=== PATIENT | male | born 1955 | race Caucasian/White ===

== ENCOUNTER 2018-10-17 14:48 | Outpatient (CLI) | payer OTHER ==
--- NOTE | 2018-10-17 15:06 | RAD ---
Left knee 2 views HISTORY: Knee pain. Disability evaluation. FINDINGS: Joint spaces are preserved. Minimal osteophytosis. Minimal calcification of the lateral men iscus. No acute fracture, dislocation, or fluid distention of the suprapatellar bursa. IMPRESSION: Minimal osteoarthritic changes left knee. No acute osseous abnormalities are demonstrated .
== END 2018-10-17 14:49 | disposition home or self-care (01) ==
LOC: BICRAD 14:48
PROVIDERS: ATTEND Internal Medicine
DX: Z02.71 Encounter for disability determination (principal); M17.12 Unilateral primary osteoarthritis, left knee

== ENCOUNTER 2022-05-25 14:42 | Inpatient (IN) | payer OTHER, MEDICAID ==
[2022-05-25 15:53] LABS: #Eosinphils 0.1 thou/uL (0.0-0.7); #Neutrophils 6.1 thou/uL (1.40-6.50); %Basophils 0.5 % (0.0-1.0); %Eosinophils 1.5 % (0.0-10.0); %Lymphocytes 21.7 % (21.0-51.0); %Monocytes 10.4 % (0.0-10.0); Hemoglobin 15.4 g/dL (14.0-18.0); Mean Corpuscular HGB CONC 33.2 g/dL (32.0-36.0); Mean Corpuscular Volume 93.2 fl (78.0-98.0); Mean Platelet Volume 10.1 fL (7.4-10.4); Platelet Count 178 10x3/uL (130-400); RBC Distribution Width 12.7 % (11.5-14.5); Red Blood Cell (RBC) Count 4.96 mill/uL (4.70-6.10); White Blood Cell (WBC) Count 9.3 10x3/uL (4.8-10.8)
[2022-05-25 16:15] LABS: Acetaminophen Less than 10.0 mcg/mL (10.0-30.0); Alcohol Less than 10 mg/dL (Less than 10); Salicylate Less than 8.0 mg/dL (15.0-30.0)
[2022-05-25 16:16] LABS: ALT (SGPT) 28 U/L (8-55); AST (SGOT) 29 U/L (5-34); Albumin 4.1 g/dL (3.4-4.8); Alkaline Phosphatase 85 U/L (40-110); Anion Gap 12 mmol/L (10-20); BUN (Urea Nitrogen) 17 mg/dL (8.4-25.7); Bilirubin, Total 0.8 mg/dL (0.2-1.2); Calc. Creatinine Clearance 0 mL/min (70-130); Calcium 9.6 mg/dL (7.8-10.44); Carbon Dioxide 32 mmol/L (23-31); Chloride 104 mmol/L (98-107); Estimated GFR 91; Globulin 3.3 g/dL (2.4-3.5); Glucose 190 mg/dL (80-115); Potassium 3.8 mmol/L (3.5-5.1); Protein, Total 7.4 g/dL (5.8-8.1); Sodium 144 mmol/L (136-145)
[2022-05-25 16:35] LABS: CKMB 3.6 ng/mL (0-6.6)
[2022-05-25] MEDS ORDERED: Aspirin Chewable 81 MG TAB ONE (16:55)
[2022-05-25 17:30] LABS: SARS-CoV-2 NAA Rapid Test Not Detected (NotDetected)
[2022-05-25 19:47] LABS: Troponin I 0.039 ng/mL (< 0.028)
[2022-05-25] MEDS ORDERED: Ondansetron ODT 4 MG TAB PO PRN (20:13)
[2022-05-25] MEDS ORDERED: Ondansetron PF 4 MG/2 ML Vial IVP PRN (20:13)
[2022-05-25] MEDS ORDERED: Acetaminophen 325 MG TAB PO PRN (20:13)
[2022-05-25] MEDS ORDERED: Dextrose 5% in Water 1,000 ML IV PRN (20:23)
[2022-05-25] MEDS ORDERED: Dextrose 50% Abboject 50 ML SYRINGE SLOW IVP PRN (20:23)
[2022-05-25] MEDS ORDERED: HumaLOG 300 UNITS/3 ML VIAL SC PRN ×2 (20:23)
[2022-05-25 22:30] LABS: Troponin I 0.049 ng/mL (< 0.028)
[2022-05-26 00:30] LABS: Hemoglobin A1c 6.4 % (4.0-6.0)
[2022-05-26 04:22] VITALS: BMI 39.0
[2022-05-26 04:28] LABS: Bilirubin Negative (Negative); Blood, Urine Negative (Negative); Clarity Turbid (Clear); Glucose, Urine (Dipstick) 30 mg/dL (Negative); Ketone, Urine Negative (Negative); Leukocyte Negative Leu/uL (Negative); Nitrite Negative (Negative); Protein, Urine (Dipstick) 50 mg/dL (Neg-Trace); Specific Gravity, Urine 1.031 (1.002-1.036); Squamous Epithelial 0-3 HPF (0-3); WBC/HPF 0-3 HPF (0-3)
[2022-05-26 04:29] LABS: Bacteria/HPF 1+ HPF (None Seen)
[2022-05-26 05:07] LABS: Amphetamine Not Detected (NotDetected); Barbiturates Screen Not Detected (NotDetected); Benzodiazepine Screen Not Detected (NotDetected); Cocaine Metabolite Screen Not Detected (NotDetected); Methadone Not Detected (NotDetected); Methamphetamine Not Detected (NotDetected); Opiate Screen Not Detected (NotDetected); Oxycodone Screen Not Detected (NotDetected); Phencyclidine (PCP) Not Detected (NotDetected); THC/Cannabinoid Screen Not Detected (NotDetected); Tricyclic Screen Not Detected (NotDetected)
[2022-05-26 05:18] LABS: #Basophils 0.1 thou/uL (0.0-0.2); #Eosinphils 0.2 thou/uL (0.0-0.7); #Lymphocytes 2.4 thou/uL (1.20-3.40); #Monocytes 0.9 thou/uL (0.11-0.59); #Neutrophils 5.2 thou/uL (1.40-6.50); %Basophils 0.7 % (0.0-1.0); %Eosinophils 2.6 % (0.0-10.0); %Lymphocytes 27.8 % (21.0-51.0); %Neutrophils 58.9 % (42.0-75.0); Mean Corpuscular HGB CONC 32.9 g/dL (32.0-36.0); Mean Corpuscular Hemoglobin 30.8 pg (27.0-31.0); Mean Corpuscular Volume 93.5 fl (78.0-98.0); Mean Platelet Volume 10.3 fL (7.4-10.4); Platelet Count 155 10x3/uL (130-400); RBC Distribution Width 12.8 % (11.5-14.5); Red Blood Cell (RBC) Count 4.54 mill/uL (4.70-6.10); White Blood Cell (WBC) Count 8.8 10x3/uL (4.8-10.8)
[2022-05-26 05:34] LABS: Anion Gap 14 mmol/L (10-20); BUN (Urea Nitrogen) 17 mg/dL (8.4-25.7); CK (CPK) 345 U/L (30-200); Calc. Creatinine Clearance 155 mL/min (70-130); Carbon Dioxide 27 mmol/L (23-31); Cardiac Risk 4.9 (Less than 4.5); Chloride 104 mmol/L (98-107); Cholesterol 192 mg/dl (< 200 Desired); Estimated GFR 98; Glucose 162 mg/dL (80-115); HDL Cholesterol 39 mg/dL (>60 Neg Risk); LDL Cholesterol, Calculated 128 mg/dL; Potassium 3.3 mmol/L (3.5-5.1); Sodium 142 mmol/L (136-145); Triglycerides 127 mg/dL (Less than 150)
[2022-05-26] MEDS: Aspirin Chewable 81 MG TAB PO SCH (12:25)
[2022-05-26] MEDS: Enoxaparin Sodium 40 MG/0.4 ML SYRINGE SC SCH (12:25)
[2022-05-26] MEDS ORDERED: Potassium Chloride 20 MEQ TAB PO SCH (19:45)
[2022-05-26] MEDS: Nystatin Powder 15 GM BOT TOP SCH (21:36)
[2022-05-26] MEDS: Atorvastatin Calcium 40 MG TAB PO SCH (21:36)
[2022-05-26] MEDS: TICAGRELOR 90 MG TABLET PO SCH (21:36)
[2022-05-27 05:34] LABS: Anion Gap 15 mmol/L (10-20); BUN (Urea Nitrogen) 16 mg/dL (8.4-25.7); Calc. Creatinine Clearance 158 mL/min (70-130); Calcium 8.7 mg/dL (7.8-10.44); Carbon Dioxide 25 mmol/L (23-31); Chloride 98 mmol/L (98-107); Estimated GFR 99; Glucose 101 mg/dL (80-115); Potassium 3.5 mmol/L (3.5-5.1); Sodium 134 mmol/L (136-145)
[2022-05-27] MEDS: Nystatin Powder 15 GM BOT TOP SCH ×2 (08:32→21:44)
[2022-05-27] MEDS: Aspirin Chewable 81 MG TAB PO SCH (08:32)
[2022-05-27] MEDS: Lisinopril 10 MG TAB PO SCH (08:32)
[2022-05-27] MEDS: Enoxaparin Sodium 40 MG/0.4 ML SYRINGE SC SCH (08:32)
[2022-05-27] MEDS: TICAGRELOR 90 MG TABLET PO SCH ×2 (08:32→21:43)
[2022-05-27] MEDS: Atorvastatin Calcium 40 MG TAB PO SCH (21:43)
[2022-05-28] MEDS: metFORMIN 500 MG TAB PO SCH ×2 (08:49→16:04)
[2022-05-28] MEDS: TICAGRELOR 90 MG TABLET PO SCH ×2 (08:49→21:21)
[2022-05-28] MEDS: Enoxaparin Sodium 40 MG/0.4 ML SYRINGE SC SCH (08:49)
[2022-05-28] MEDS: Aspirin Chewable 81 MG TAB PO SCH (08:49)
[2022-05-28] MEDS: Lisinopril 10 MG TAB PO SCH (08:50)
[2022-05-28] MEDS: Nystatin Powder 15 GM BOT TOP SCH ×2 (08:50→21:21)
[2022-05-28] MEDS: Rosuvastatin 20 MG TAB PO SCH (08:50)
[2022-05-28] MEDS ORDERED: Potassium Chloride 20 MEQ TAB PO ONE (17:00)
[2022-05-28] MEDS: Atorvastatin Calcium 40 MG TAB PO SCH (21:21)
[2022-05-29] MEDS: Aspirin Chewable 81 MG TAB PO SCH (08:05)
[2022-05-29] MEDS: metFORMIN 500 MG TAB PO SCH ×2 (08:05→17:26)
[2022-05-29] MEDS: Nystatin Powder 15 GM BOT TOP SCH ×2 (08:06→22:52)
[2022-05-29] MEDS: Lisinopril 10 MG TAB PO SCH (08:06)
[2022-05-29] MEDS: TICAGRELOR 90 MG TABLET PO SCH ×2 (08:07→20:10)
[2022-05-29] MEDS: Rosuvastatin 20 MG TAB PO SCH (08:07)
[2022-05-29] MEDS: Atorvastatin Calcium 40 MG TAB PO SCH (20:10)
[2022-05-29] MEDS: Heparin 5,000 UNITS/ML VIAL SC SCH (20:10)
[2022-05-30 05:28] LABS: #Basophils 0.1 thou/uL (0.0-0.2); #Eosinphils 0.2 thou/uL (0.0-0.7); #Lymphocytes 2.2 thou/uL (1.20-3.40); #Monocytes 0.7 thou/uL (0.11-0.59); #Neutrophils 3.6 thou/uL (1.40-6.50); %Basophils 0.8 % (0.0-1.0); %Eosinophils 2.9 % (0.0-10.0); %Lymphocytes 32.9 % (21.0-51.0); %Monocytes 10.2 % (0.0-10.0); %Neutrophils 53.2 % (42.0-75.0); Hemoglobin 13.3 g/dL (14.0-18.0); Mean Corpuscular HGB CONC 35.1 g/dL (32.0-36.0); Mean Corpuscular Hemoglobin 32.3 pg (27.0-31.0); Mean Corpuscular Volume 92.1 fl (78.0-98.0); Mean Platelet Volume 10.7 fL (7.4-10.4); Platelet Count 132 10x3/uL (130-400); RBC Distribution Width 12.5 % (11.5-14.5); Red Blood Cell (RBC) Count 4.13 mill/uL (4.70-6.10); White Blood Cell (WBC) Count 6.8 10x3/uL (4.8-10.8)
[2022-05-30 05:31] LABS: Anion Gap 13 mmol/L (10-20); BUN (Urea Nitrogen) 11 mg/dL (8.4-25.7); Calc. Creatinine Clearance 169 mL/min (70-130); Calcium 8.8 mg/dL (7.8-10.44); Carbon Dioxide 23 mmol/L (23-31); Chloride 101 mmol/L (98-107); Estimated GFR 101; Glucose 99 mg/dL (80-115); Potassium 3.8 mmol/L (3.5-5.1); Sodium 133 mmol/L (136-145)
[2022-05-30] MEDS: metFORMIN 500 MG TAB PO SCH ×2 (09:09→17:49)
[2022-05-30] MEDS: Rosuvastatin 20 MG TAB PO SCH (09:09)
[2022-05-30] MEDS: Aspirin Chewable 81 MG TAB PO SCH (09:09)
[2022-05-30] MEDS: Lisinopril 10 MG TAB PO SCH (09:09)
[2022-05-30] MEDS: Heparin 5,000 UNITS/ML VIAL SC SCH ×2 (09:10→20:38)
[2022-05-30] MEDS: TICAGRELOR 90 MG TABLET PO SCH ×2 (09:10→20:38)
[2022-05-30] MEDS: Nystatin Powder 15 GM BOT TOP SCH ×2 (09:11→20:38)
[2022-05-30] MEDS: Atorvastatin Calcium 40 MG TAB PO SCH (20:38)
[2022-05-30] MEDS ORDERED: hydrALAZINE 10 MG TAB PO SCH (23:30)
[2022-05-31] MEDS: TICAGRELOR 90 MG TABLET PO SCH ×2 (08:59→20:35)
[2022-05-31] MEDS: metFORMIN 500 MG TAB PO SCH ×2 (08:59→16:48)
[2022-05-31] MEDS: Rosuvastatin 20 MG TAB PO SCH (08:59)
[2022-05-31] MEDS: Aspirin Chewable 81 MG TAB PO SCH (08:59)
[2022-05-31] MEDS: Lisinopril 10 MG TAB PO SCH ×2 (08:59→20:35)
[2022-05-31] MEDS: Heparin 5,000 UNITS/ML VIAL SC SCH ×2 (08:59→20:35)
[2022-05-31] MEDS: Nystatin Powder 15 GM BOT TOP SCH ×2 (09:00→20:36)
[2022-05-31] MEDS: Atorvastatin Calcium 40 MG TAB PO SCH (20:35)
[2022-06-01] MEDS: Aspirin Chewable 81 MG TAB PO SCH (08:36)
[2022-06-01] MEDS: Nystatin Powder 15 GM BOT TOP SCH ×2 (08:36→21:26)
[2022-06-01] MEDS: Rosuvastatin 20 MG TAB PO SCH (08:36)
[2022-06-01] MEDS: Lisinopril 10 MG TAB PO SCH ×2 (08:37→21:22)
[2022-06-01] MEDS: TICAGRELOR 90 MG TABLET PO SCH ×2 (08:37→21:22)
[2022-06-01] MEDS: metFORMIN 500 MG TAB PO SCH ×2 (08:37→16:05)
[2022-06-01] MEDS: Heparin 5,000 UNITS/ML VIAL SC SCH ×2 (08:37→21:23)
[2022-06-01] MEDS: Atorvastatin Calcium 40 MG TAB PO SCH (21:22)
[2022-06-02] MEDS: Aspirin Chewable 81 MG TAB PO SCH (09:03)
[2022-06-02] MEDS: Rosuvastatin 20 MG TAB PO SCH (09:03)
[2022-06-02] MEDS: TICAGRELOR 90 MG TABLET PO SCH ×2 (09:03→20:20)
[2022-06-02] MEDS: Lisinopril 10 MG TAB PO SCH ×2 (09:03→20:19)
[2022-06-02] MEDS: metFORMIN 500 MG TAB PO SCH ×2 (09:03→16:16)
[2022-06-02] MEDS: Heparin 5,000 UNITS/ML VIAL SC SCH ×2 (09:04→20:19)
[2022-06-02] MEDS: Nystatin Powder 15 GM BOT TOP SCH ×2 (09:04→20:20)
[2022-06-02] MEDS: Atorvastatin Calcium 40 MG TAB PO SCH (20:19)
[2022-06-03] MEDS: Nystatin Powder 15 GM BOT TOP SCH (08:46)
[2022-06-03] MEDS: metFORMIN 500 MG TAB PO SCH (08:46)
[2022-06-03] MEDS: Aspirin Chewable 81 MG TAB PO SCH (08:46)
[2022-06-03] MEDS: Lisinopril 10 MG TAB PO SCH (08:46)
[2022-06-03] MEDS: TICAGRELOR 90 MG TABLET PO SCH (08:46)
[2022-06-03] MEDS: Rosuvastatin 20 MG TAB PO SCH (08:46)
[2022-06-03 16:04] VITALS: BP 143/81; TEMP 97.7
== END 2022-06-03 15:08 | DRG 948 ==
LOC: ERS 14:42 → ERHOLD 16:57 → 2SW 05-26 02:53 → OBSVTOIN 05-26 19:51 → 2SW 05-28 10:52 → T4-A 05-30 12:51
PROVIDERS: ADMIT Family Medicine; ATTEND Internal Medicine
DX: R53.1 Weakness (principal); R77.8 Other specified abnormalities of plasma proteins; Z20.822 Contact with and (suspected) exposure to COVID-19; E11.9 Type 2 diabetes mellitus without complications; I10 Essential (primary) hypertension; F17.210 Nicotine dependence, cigarettes, uncomplicated; F43.20 Adjustment disorder, unspecified; E87.6 Hypokalemia; E78.5 Hyperlipidemia, unspecified; Z79.84 Long term (current) use of oral hypoglycemic drugs; Z79.899 Other long term (current) drug therapy
CPT/HCPCS: 36415; 36416; 78452; 80048; 80053; 80061; 80306; 80307; 81001; 82550; 82553; 83036; 84484; 85025; 87811; 93005; 93017; A9500; J0153; J1644; J1650

== ENCOUNTER 2022-07-06 17:31 | Emergency (ER) | payer OTHER, MEDICAID | END 2022-07-06 19:45 | disposition home or self-care (01) | LOC: ERS 17:31 | DX: Z76.5 Malingerer [conscious simulation] (principal); E11.9 Type 2 diabetes mellitus without complications; I10 Essential (primary) hypertension; Z79.82 Long term (current) use of aspirin; F17.220 Nicotine dependence, chewing tobacco, uncomplicated | CPT/HCPCS: 99284 ==